=== PATIENT | male | born 1985 | race Caucasian/White ===

== ENCOUNTER 2017-10-14 02:29 | Emergency (ER) | payer SELFPAY ==
[~2017-10-14] VITALS: Ht 172.7 cm; Wt 85.5 kg
[~2017-10-14 02:29] MED LIST: LORT5TAB PO; SILV1CRE80 EX; Z.0.NO CURRENT MEDS
[2017-10-14 02:42] VITALS: BP 147/88; PULSE 110; RESP 20; TEMP 97.6; O2SAT 97
== END 2017-10-14 03:18 | disposition left against medical advice (07) ==
LOC: PHED 02:29
DX: H92.09 Otalgia, unspecified ear (principal)
CPT/HCPCS: 99281